=== PATIENT | female | born 1945 | race Caucasian/White ===

== ENCOUNTER 2016-09-13 10:15 | Emergency (ER) | payer MEDICARE, BC ==
[~2016-09-13] VITALS: Ht 152.4 cm; Wt 67.6 kg
[~2016-09-13 10:15] MED LIST: ASPI81 PO; BIOT10004 PO; CELE200 PO; CYCL-36 PO; ESZO2 PO; GABA300 PO; LIVA2TAB PO; METO50CR PO; RALO1TAB13 PO; RIFA550 PO; RYTH150T PO; SERT-132 PO; VITA400C28 PO
[2016-09-13 10:20] VITALS: BP 103/81; PULSE 87; RESP 14; TEMP 97.8; O2SAT 97
[2016-09-13] MEDS ORDERED: VENL37.5 PO (10:35)
[2016-09-13] MEDS ORDERED: EVIS60TA PO (10:35)
[2016-09-13] MEDS ORDERED: GABA300C5 PO (10:35)
[2016-09-13] MEDS ORDERED: PROP150T PO (10:35)
[2016-09-13] MEDS ORDERED: LIVA1TAB PO (10:35)
[2016-09-13] MEDS ORDERED: LUNE1TAB6 PO (10:35)
[2016-09-13] MEDS ORDERED: ASPI81CH CHEW (10:35)
[2016-09-13] MEDS ORDERED: TOPR50TA PO (10:35)
--- NOTE | 2016-09-13 10:42 | PD ---
HPI Chief Complaint: Cardiac Complaint Time Seen by Provider: 10:37 Travel History International Travel<30 days: No Contact w/Intl Traveler<30days: No Traveled to known affect area: No History of Present Illness HPI PATIENT SEES DR DODSON....EARLIER TODAY HAD EPISODE OF PALPITATIONS, NOW RESOLVED. NO CP OF ANY KIND, NO DIZZINESS AT THIS POINT EITHER. EPISODE LASTED ABOUT A MINUTE OR 2, WAS AT REST AND CAME ON SUDDENLY. PFSH Past Medical History Hx Anticoagulant Therapy: Yes (asa) Asthma: Yes Blood Disorders: No Heart Rhythm Problems: Yes Cancer: No Cardiac Catheterization: Yes Cardiovascular Problems: Yes (SVT) High Cholesterol: No Chest Pain: Yes Congestive Heart Failure: No Diabetes: No Diminished Hearing: No Endocrine: No Gastrointestinal Disorders: Yes (I.B.S.) GERD: Yes Genitourinary: Yes Hypertension: Yes Musculoskeletal: Yes (OSTEOPOROSIS) Psychiatric: Yes (CLAUSTROPHOBIA) Immunizations Current: No ?: Not Menopausal: Yes Tubal Ligation: Yes Past Surgical History Coronary Artery Bypass Graft: No Tonsillectomy: Yes Family History Family Hypercholesterolemia: Yes Social History Alcohol Use: Yes (OCCAS) Tobacco Use: No Substance Use: No Allergies-Medications (Allergen,Severity, Reaction): Coded Allergies: No Known Allergies (Verified , 09/13/16) Reported Meds & Prescriptions Reported Meds & Active Scripts Active Reported Aspirin 81 Mg Chew 81 Mg CHEW DAILY Lunesta (Eszopiclone) 1 Mg Tab 1 Mg PO HS PRN Effexor (Venlafaxine HCl) 37.5 Mg Tab 37.5 Mg PO DAILY Gabapentin 300 Mg Cap 300 Mg PO TID Evista (Raloxifene HCl) 60 Mg Tab 60 Mg PO DAILY Toprol XL (Metoprolol Succinate) 50 Mg Tab 50 Mg PO DAILY Propafenone (Propafenone HCl) 150 Mg Tab 150 Mg PO Q8HR Livalo (Pitavastatin) 1 Mg Tab 1 Mg PO DAILY Review of Systems Except as stated in HPI: all other systems reviewed are Neg Cardiovascular: Positive: Palpitations Physical Exam Narrative GENERAL: SKIN: Warm and dry. HEAD: Atraumatic. Normocephalic. EYES: Pupils equal and round. No scleral icterus. No injection or drainage. ENT: No nasal bleeding or discharge. Mucous membranes pink and moist. NECK: Trachea midline. No JVD. CARDIOVASCULAR: Regular rate and rhythm. RESPIRATORY: No accessory muscle use. Clear to auscultation. Breath sounds equal bilaterally. GASTROINTESTINAL: Abdomen soft, non-tender, nondistended. Hepatic and splenic margins not palpable. MUSCULOSKELETAL: Extremities without clubbing, cyanosis, or edema. No obvious deformities. NEUROLOGICAL: Awake and alert. No obvious cranial nerve deficits. Motor grossly within normal limits. Five out of 5 muscle strength in the arms and legs. Normal speech. PSYCHIATRIC: Appropriate mood and affect; insight and judgment normal. Data Data Last Documented VS Vital Signs Date Time Temp Pulse Resp B/P Pulse Ox O2 Delivery O2 Flow Rate FiO2 09/13/16 12:15 76 20 108/65 09/13/16 10:52 98 09/13/16 10:20 97.8 Orders Electrocardiogram (09/13/16 10:39) Complete Blood Count With Diff (09/13/16 10:39) Comprehensive Metabolic Panel (09/13/16 10:39) Ckmb (Isoenzyme) Profile (09/13/16 10:39) Troponin I (09/13/16 10:39) B-Type Natriuretic Peptide (09/13/16 10:39) Prothrombin Time / Inr (Pt) (09/13/16 10:39) Act Partial Throm Time (Ptt) (09/13/16 10:39) Thyroid Stimulating Hormone (09/13/16 10:39) Chest, Single Ap (09/13/16 10:39) Iv Access Insert/Monitor (09/13/16 10:39) Ecg Monitoring (09/13/16 10:39) Oximetry (09/13/16 10:39) Labs Laboratory Tests Test 09/13/16 11:00 White Blood Count 7.3 TH/MM3 Red Blood Count 4.10 MIL/MM3 Hemoglobin 11.9 GM/DL Hematocrit 36.0 % Mean Corpuscular Volume 87.9 FL Mean Corpuscular Hemoglobin 29.0 PG Mean Corpuscular Hemoglobin 33.0 % Concent Red Cell Distribution Width 12.6 % Platelet Count 210 TH/MM3 Mean Platelet Volume 9.5 FL Neutrophils (%) (Auto) 62.0 % Lymphocytes (%) (Auto) 29.6 % Monocytes (%) (Auto) 6.3 % Eosinophils (%) (Auto) 0.7 % Basophils (%) (Auto) 1.4 % Neutrophils # (Auto) 4.5 TH/MM3 Lymphocytes # (Auto) 2.1 TH/MM3 Monocytes # (Auto) 0.5 TH/MM3 Eosinophils # (Auto) 0.1 TH/MM3 Basophils # (Auto) 0.1 TH/MM3 CBC Comment DIFF FINAL Differential Comment Prothrombin Time 10.6 SEC Prothromb Time International 1.0 RATIO Ratio Activated Partial 26.9 SEC Thromboplast Time Sodium Level 142 MEQ/L Potassium Level 4.1 MEQ/L Chloride Level 107 MEQ/L Carbon Dioxide Level 23.8 MEQ/L Anion Gap 11 MEQ/L Blood Urea Nitrogen 14 MG/DL Creatinine 0.87 MG/DL Estimat Glomerular Filtration 65 ML/MIN Rate Random Glucose 86 MG/DL Calcium Level 9.3 MG/DL Total Bilirubin 0.4 MG/DL Aspartate Amino Transf 23 U/L (AST/SGOT) Alanine Aminotransferase 22 U/L (ALT/SGPT) Alkaline Phosphatase 67 U/L Total Creatine Kinase 60 U/L Troponin I LESS THAN 0.02 NG/ML B-Type Natriuretic Peptide 50 PG/ML Total Protein 7.0 GM/DL Albumin 3.6 GM/DL Thyroid Stimulating Hormone 0.670 uIU/ML 3rd Gen [facility] Medical Decision Making Medical Screen Exam Complete: Yes Emergency Medical Condition: Yes Medical Record Reviewed: Yes Interpretation(s) NSR 83, NL INTERVALS, NO STEMI PATTERN Differential Diagnosis PALPITATIONS V ANEMIA V DEHYDRATION V RENAL DZ Narrative Course PATIENT REMAINED STABLE AND WITHOUT ANY RECURRENCE OF DYSRHYTHMIA DURING OBSERVATION IN ER. CBC AND CMP WNL. CXR WNL WELL. PT WILL BE D/C WITH [facility] TO SEE PCP AND DR CAZARES FOR FURTHER CARE Diagnosis Primary Impression: Palpitations Patient Instructions: General Instructions, Palpitations (ED) Disposition: 01 DISCHARGE HOME Condition: Stable Too Ayala MD Sep 13, 2016 10:42
[2016-09-13 10:52] VITALS: O2SAT 98
--- NOTE | 2016-09-13 10:55 | RADRPT ---
EXAM DATE/TIME: 09/13/2016 10:49 [place] COMPARISON: CHEST SINGLE AP, March 13, 2015, 18:41. INDICATIONS : Episode of SVT today MEDICAL HISTORY : SVT SURGICAL HISTORY : None. ENCOUNTER: Initial ACUITY: 1 day PAIN SCORE: 0/10 LOCATION: Bilateral chest FINDINGS: A single view of the chest demonstrates the lungs to be symmetrically aerated without evidence of mas s, infiltrate or effusion. The cardiomediastinal contours are unremarkable. Osseous structures are intact. CONCLUSION: No acute disease. No significant change has occurred. Tirso Jane MD on September 13, 2016 at 10:53 Board Certified Radiologist. This report was verified electronically.
[2016-09-13 11:11] VITALS: BP 120/73; PULSE 82; RESP 20
[2016-09-13 11:20] LABS: AUTOMATED NEUTROPHIL # 4.5 TH/MM3 (1.8-7.7); BASOPHIL # 0.1 TH/MM3 (0-0.2); BASOPHIL % 1.4 % (0.0-2.0); EOSINOPHIL # 0.1 TH/MM3 (0-0.4); EOSINOPHIL % 0.7 % (0.0-4.0); HEMO FLAGS DIFF FINAL; LYMPH % 29.6 % (9.0-44.0); LYMPHOCYTE # 2.1 TH/MM3 (1.0-4.8); MEAN CELL VOLUME 87.9 FL (80.0-100.0); MONO % 6.3 % (0.0-8.0); PLATELET COUNT 210 TH/MM3 (150-450); RED CELL DISTRIBUTION WIDTH 12.6 % (11.6-17.2); WHITE BLOOD COUNT 7.3 TH/MM3 (4.0-11.0)
[2016-09-13 11:26] LABS: CHLORIDE 107 MEQ/L (98-107); POTASSIUM 4.1 MEQ/L (3.5-5.1); SODIUM (NA) 142 MEQ/L (136-145)
[2016-09-13 11:30] LABS: APTT (PATIENT) 26.9 SEC (24.3-30.1); PROTHROMBIN TIME - PATIENT 10.6 SEC (9.8-11.6)
[2016-09-13 11:32] LABS: ANION GAP 11 MEQ/L (5-15); BICARBONATE 23.8 MEQ/L (21.0-32.0); BLOOD UREA NITROGEN 14 MG/DL (7-18)
[2016-09-13 11:34] LABS: ALT (GPT) 22 U/L (10-53)
[2016-09-13 11:35] LABS: AST (GOT) 23 U/L (15-37); GLOMERULAR FILTRATION RATE 65 ML/MIN (>89)
[2016-09-13 11:36] LABS: TOTAL BILIRUBIN ADULT 0.4 MG/DL (0.2-1.0)
[2016-09-13 11:37] LABS: ALKALINE PHOSPHATASE 67 U/L (45-117)
[2016-09-13 11:53] LABS: CREATINE KINASE 60 U/L (26-192)
[2016-09-13 12:15] VITALS: BP 108/65; PULSE 76; RESP 20
--- NOTE | 2016-09-14 12:17 | EKG ---
Date Performed: 09/13/2016 Time Performed: 10:54:18 PTAGE: 70 years EKG: Sinus rhythm Since previous tracing, no significant change noted NORMAL ECG PREVIOUS TRACING : 03/13/2015 18.29 DOCTOR: Vinh Evans Interpretating Date/Time 09/14/2016 12:15:53
== END 2016-09-13 12:40 | disposition home or self-care (01) ==
LOC: PHED 10:15
DX: R00.2 Palpitations (principal); M81.0 Age-related osteoporosis without current pathological fracture; I10 Essential (primary) hypertension; J45.909 Unspecified asthma, uncomplicated; K21.9 Gastro-esophageal reflux disease without esophagitis; I47.1 Supraventricular tachycardia; Z79.82 Long term (current) use of aspirin
CPT/HCPCS: 71010; 80053; 82550; 83880; 84443; 84484; 85025; 85610; 85730; 93005; 99285